=== PATIENT | female | born 1985 | race Two or more races ===

== ENCOUNTER 2020-04-17 19:40 | Inpatient (IN) | payer OTHER ==
[~2020-04-17] VITALS: Ht 160 cm; Wt 66.2 kg
[2020-04-17] MEDS ORDERED: PRENATAL TABLE1 EAC1 PO (20:41)
[2020-04-17] MEDS ORDERED: FOLIC ACID PO (20:42)
[2020-04-18] MEDS ORDERED: FOLIC ACID0.8 M1 PO (08:26)
== END 2020-04-20 14:07 | disposition home or self-care (01) | DRG 807 ==
LOC: LDR 19:40 → EDBD 19:40 → LDR 21:05 → OB/GYN 04-19 00:28
PROVIDERS: ADMIT Obstetrics & Gynecology; ATTEND Obstetrics & Gynecology
PROC: 4A1HXFZ Monitoring of Products of Conception, Cardiac Rhythm, External Approach (ICD-10-PCS; 2020-04-17)
PROC: 10E0XZZ Delivery of Products of Conception, External Approach (ICD-10-PCS; principal; 2020-04-18)
PROC: 0W8NXZZ Division of Female Perineum, External Approach (ICD-10-PCS; 2020-04-18)
DX: O80 Encounter for full-term uncomplicated delivery (principal); Z37.0 Single live birth; Z3A.39 39 weeks gestation of pregnancy; Z20.822 Contact with and (suspected) exposure to COVID-19

== ENCOUNTER 2021-11-27 10:26 | Day surgery (SDC) | payer OTHER ==
[~2021-11-27 10:26] MED LIST: FOLIC ACID PO; FOLIC ACID0.8 M1 PO; PRENATAL TABLE1 EAC1 PO
== END 2021-11-27 22:10 | disposition home or self-care (01) ==
LOC: CIR.AMB 10:26
PROVIDERS: ATTEND Obstetrics & Gynecology
DX: N72 Inflammatory disease of cervix uteri (principal); Z20.822 Contact with and (suspected) exposure to COVID-19